=== PATIENT | female | born 1960 | race Caucasian/White ===

== ENCOUNTER → 2020-05-21 16:18 | Outpatient (CLI) | payer OTHER, SELFPAY ==
--- NOTE | ~2020-05-21 | XR_ITS ---
XR shoulder LT min 2V 05/21/2020 16:38 Indication: Left shoulder pain Procedure: 4 views left shoulder Comparison: No prior studies for comparison. Findings: No fracture or traumatic malalignment. No significant soft tissue abnormality. No radiopaqu e foreign bodies. Impression: 1: No significant bone or joint abnormality. Reviewed, dictated and finalized at location A. Impression: 1: No significant bone or joint abnormality.
== END ==
PROVIDERS: PCP Family Medicine; Visit Provider Family Medicine
DX: G89.29 Other chronic pain (principal); M25.512 Pain in left shoulder
CPT/HCPCS: 73030

== ENCOUNTER → 2020-11-21 10:37 | Outpatient (CLI) | payer OTHER, SELFPAY ==
--- NOTE | ~2020-11-21 | US_ITS ---
EXAMINATION: US abdomen limited EXAM DATE: 11/21/2020 11:09 INDICATION: R10.10 - Upper abdominal pain, unspecified. TECHNIQUE: Multiple grayscale and Doppler images of the abdomen right upper quadrant were obtained (b y a technologist who performed the scan) and subsequently reviewed. There is no prior study for cordelia pearl. FINDINGS: The pancreatic head and body are normal in appearance. The pancreatic tail is not visualized. The l iver has normal echogenicity and contour. There are no focal liver lesions identified. There is no evidence of intrahepatic biliary duct dilation. Portal venous flow was seen in the hepatopedal, nor mal direction and has normal Doppler waveform. No right-sided hydronephrosis. Common bile duct measures 3 mm, which is normal. The gallbladder wall is normal in thickness, with ex pected amount of distention. No sonographic evidence of pericholecystic fluid. There is cholelithia sis. Technologist performing exam reports patient did not demonstrate sonographic Rodriguez's sign. P madhu note that this sign is less reliable in patients who have received pain medication. IMPRESSION: 1. Cholelithiasis. Reviewed, dictated and finalized at location A. IMPRESSION: 1. Cholelithiasis.
== END ==
PROVIDERS: Visit Provider Nurse Practitioner Family
DX: R10.10 Upper abdominal pain, unspecified (principal); K80.20 Calculus of gallbladder without cholecystitis without obstruction
CPT/HCPCS: 76705

== ENCOUNTER 2020-11-26 11:30 | Outpatient (CLI) | payer OTHER, SELFPAY ==
--- NOTE | ~2020-11-26 | NM_ITS ---
EXAMINATION: NM hepatobiliary wo pharm DATE: 11/26/2020 14:04 INDICATION: Abdominal pain. Cholelithiasis. COMPARISON: None. TECHNIQUE: 4 mCi Tc-99m mebrofenin (Choletec) was administered intravenously. Scintigraphic images o f the abdomen were obtained for one hour. At the 1 hour time point, the patient drank 8 oz Ensure, an d imaging was continued for 60 minutes. Gallbladder ejection fraction was calculated by the technolog ist. FINDINGS: There is normal clearance of radiotracer from the blood pool. There is homogeneous tracer u ptake by the liver. Activity progresses to the bowel and gallbladder. The gallbladder ejection fract ion (GBEF) is 63%. Note that with this technique, normal GBEF >= 33%. IMPRESSION: 1. Normal hepatobiliary scan Reviewed, dictated and finalized at location A.
== END 2020-11-26 11:31 | disposition home or self-care (01) ==
PROVIDERS: PCP Family Medicine; Visit Provider Family Medicine
DX: K80.20 Calculus of gallbladder without cholecystitis without obstruction (principal)
CPT/HCPCS: 78226; A9537

== ENCOUNTER → 2020-12-06 03:32 | Outpatient (CLI) | payer OTHER, SELFPAY ==
[2020-12-06 19:43] LABS: SARS-CoV-2 RNA PCR Negative
== END ==
PROVIDERS: PCP Family Medicine; Visit Provider Surgery
DX: Z01.812 Encounter for preprocedural laboratory examination (principal); Z20.822 Contact with and (suspected) exposure to COVID-19
CPT/HCPCS: C9803; U0003; U0005

== ENCOUNTER 2020-12-06 09:06 | Outpatient (CLI) | payer OTHER, SELFPAY ==
[2020-12-06 09:35] LABS: Basophils Absolute Auto 0.1 K/mm3 (0.0-0.1); Basophils Percent Auto 0.7 % (0.2-1.2); Eosinophils Absolute Auto 0.1 K/mm3 (0-0.3); Eosinophils Percent Auto 0.8 % (0-4.4); Hematocrit 42.9 % (37.0-47.0); Hemoglobin 13.9 g/dL (12.0-15.0); Immature Granulocyte Absolute 0.03 K/mm3 (0.00-0.031); Immature Granulocyte Percent A 0.4 % (0-0.5); Lymphocytes Absolute Auto 2.24 K/mm3 (0.9-3.2); Mean Corpuscular HGB Conc 32.4 g/dl (32-36); Mean Corpuscular Hemoglobin 29.7 pg (26-34); Mean Corpuscular Volume 91.7 fl (80-100); Monocytes Absolute Auto 0.5 K/mm3 (0.1-0.6); Monocytes Percent Auto 6.2 % (2.6-8.5); Neutrophils Absolute Auto 4.6 K/mm3 (1.3-6.7); Neutrophils Percent Auto 61.9 % (45.5-73.1); Platelet Count Result 237 k/mm3 (150-375); Red Blood Count 4.68 M/mm3 (4.2-5.4); White Blood Count 7.5 K/mm3 (4.5-10.0)
[2020-12-06 09:40] LABS: Alanine Aminotransferase 22 U/L (4-35); Albumin Level 4.6 g/dL (3.5-5.1); Alkaline Phosphatase 75 U/L (38-126); Anion Gap 5 mmol/L (8-16); Aspartate Amino Transferase 27 U/L (14-36); Bilirubin,Total 0.8 mg/dL (0.2-1.3); Blood Urea Nitrogen 14 mg/dL (7-17); Calcium 9.9 mg/dL (8.4-10.2); Carbon Dioxide 34 mmol/L (22-30); Chloride 103 mmol/L (98-107); Estimated Glomerular Filt Rate > 60; Glucose 98 mg/dL (65-105); Potassium 4.2 mmol/L (3.4-5.0); Sodium 142 mmol/L (137-145)
== END 2020-12-06 09:07 | disposition home or self-care (01) ==
LOC: ANHLAB 09:08
PROVIDERS: PCP Family Medicine; Visit Provider Surgery
DX: K80.10 Calculus of gallbladder with chronic cholecystitis without obstruction (principal)
CPT/HCPCS: 36415; 80053; 85025

== ENCOUNTER 2020-12-09 01:34 | Day surgery (SDC) | payer OTHER, SELFPAY ==
[2020-12-04 15:27] VITALS: BMI 27.1
--- NOTE | 2020-12-08 10:12 | WPDANESEPPF ---
Anes - Initial Pre Proc Eval Procedure: Operation Date: 12/09/20 12:00 Proposed Procedures p Laparoscopic Cholecystectomy, Possible Open, Possible Intra Operative Cholangiograms - Juanito Hernandez MD Date/Time: 12/08/20 10:12 Surgeon: Juanito Hernandez MD Pre Op Diagnosis: Chronic cholecystitis with cholelithiasis Patient Data Age: 60 Gender: F Height: 1.63 m Weight: 71.7 kg Allergies Allergy/AdvReac Type Severity Reaction Status Date / Time Penicillins Allergy Unknown Hives Verified 12/04/20 15:06 Home Medications Medication Instructions Recorded Confirmed Type cholecalciferol (vitamin D3) 25 25 mcg PO DAILY 06/10/20 12/04/20 History mcg (1,000 unit) capsule biotin 5 mg capsule 5 mg PO DAILY 10/29/20 12/04/20 History omeprazole 20 mg capsule,delayed 20 mg PO DAILY #30 cap 11/14/20 12/04/20 Rx release diphenhydramine HCl [Unisom 50 mg PO HS PRN 12/04/20 12/04/20 History SleepGels] fluticasone propionate [Flonase 1 spray INTRANASAL DAILY 12/04/20 12/04/20 History Allergy Relief] Patient hx anesthesia problems: none Family hx anesthesia problems: none PMFSH Past Medical History Medical History (Updated 12/04/20 @ 14:34 by Briseyda Griggs) BMI 27.0-27.9,adult Encounter for wellness examination in adult Frozen shoulder left shoulder GERD (gastroesophageal reflux disease) Heartburn History of colon polyps Insomnia Polyp of colon Seasonal allergic rhinitis Vitamin D insufficiency Surgical History Surgical History History of intraocular lens implant (~2018) Family History Family History Mother Hypertension Father Alzheimer disease Grandparent Ovarian cancer Grandparent Acute myocardial infarction Grandparent Alzheimer disease Diabetes mellitus Grandparent Acute myocardial infarction Other Cerebrovascular accident Social History Social History Smoking status: Never smoker Alcohol intake: current Alcohol use details: ONE DRINK PER MONTH Substance use: never Living arrangements: with family 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 Questions were solicited and answers provided to the satisfaction of the patient/family/POA.
[2020-12-09] VITALS (11 sets, daily range): BP systolic 87–139; BP diastolic 52–73; PULSE 56–71; RESP 10–18; TEMP 36.1–36.8; O2SAT 97–100
[2020-12-09] MEDS: ACETAMINOPHEN 500 MG TABLET 1000 MG PO (11:06)
[2020-12-09] MEDS: KETOROLAC 15 MG/ML VIAL (*BKC) IV PUSH (11:06)
[2020-12-09] MEDS: LACTATED RINGERS 1,000 ML 30 ML IV CONT ×2 (11:06→13:55)
[2020-12-09 11:22] LABS: Amylase 51 U/L (30-110); Lipase 52 U/L (23-300)
--- NOTE | 2020-12-09 12:28 | WPDHPUPDATE1 ---
History and Physical Update Update Date/Time: 12/09/20 12:28 History and Physical has been reviewed, including an updated exam of the patient. There are NO changes in the patient's condition. Risks, benefits, and alternatives have been discussed and questions answered. Patient agrees to proceed with procedure.
[2020-12-09] MEDS: CLINDAMYCIN 900 MG/D5W 50 ML 900 MG/50 ML PIGGYBACK 50 MG IVPB (12:37)
[2020-12-09] MEDS: BUPIVACAINE/EPINEPHRINE 0.5% 30 ML VIAL 20 ML INFILTRATE (12:48)
--- NOTE | 2020-12-09 13:53 | P.OP_ITS ---
Procedure Note - Detailed Date of procedure: 12/09/20 Pre-op diagnosis: Chronic cholecystitis with cholelithiasis Chronic Cholecystitis with Cholelithiasis Post-op diagnosis: same Procedure performed: Laparoscopic Cholecystectomy Description of procedure: Patient was seen preoperatively in the holding area and risks, benefits and alternatives confirmed. Patient was taken to the operating room and general anesthesia was induced. A time out was then preformed with the surgery team confirming patient and site of surgery. The abdomen was prepped and draped in the usual sterile fashion. Incision was made just below the umbilicus with an 11 blade knife. I placed 2 stay sutures of O- Vicryl on either side of the mid- line fascia beneath the umbilicus and was then able to slide in the Draper cannula through the fascial defect into the peritoneum. First under low flow and then under high flow the abdomen was insufflated with carbon dioxide never exceeding a pressure of 14. Three 5 mm trocars were then introduced under direct vision. The following trocars were introduced under direct vision: a 5 mm in the epigastrium and two 5 mm trocars along the right costal margin laterally in the subcostal area. There was significant omental adhesions to the underside of the gallbladder. These were taken down with blunt and sharp dissection using some Bovie cautery for hemostasis. We were able to dissect this completely away from the neck of the gallbladder. I then carefully used the L-shaped cautery and the [place] dissector to dissect out the triangle of Calot. I then was able to dissect out both the cystic duct and cystic artery and identify a window of safety. The gall bladder was grasped and the cystic duct and artery were dissected free and clipped with an 5 mm endo-clip italian lecturer. The cystic duct and artery were clipped with use of 2 clips on the patient's side 1 on the gallbladder side utilizing a 5 mm endoclip- italian lecturer. The cystic duct was then transected. The cystic artery was also transected at this point. The gall bladder was removed using electrocautery and then removed from the abdomen using a large 10 mm grasper via the umbilical incision. The skin incision at the level of the umbilicus had to be lengthened slightly in order to get the large stone out of the subcu tissues. The trocars were removed visualizing hemostasis and the remaining gas evacuated. The large trocar site at the umbilicus was closed with use of the 2 stay sutures of 0 Vicryl mentioned above and also a figure of 8 O-Vicryl suture. A 2nd simple suture of 0 Vicryl was use slightly above the previous 1 to close the fascia beneath the umbilicus well. The 2 stay sutures mentioned above on either side of the fascia were also tied together to help approximate this midline fascia. Further local anesthetic was placed into each incision for postop pain control. The skin incisions were closed with subcuticular suture of 4-0 Monocryl. Surgical glue then was applied to all the incisions. Patient tolerated the procedure well was taken to the recovery room in good condition. Implants: none Anesthesia: GETA Surgeon: Juanito Hernandez MD Track Laying Equipment Operator: Ericka ARROYO, OR or first assist registered nurse Estimated blood loss (mL): 5 Drains: No Packing: No Pathology: yes (Gallbladder) Complications: No immediate complications Condition: stable Disposition: PACU Findings: Patient had a slightly enlarged gallbladder with a palpable approximately 3 cm stone within it.
[2020-12-09] MEDS: fentaNYL CITRATE INJ (*CRX) 100 MCG/2 ML VIAL 25 MCG IV PUSH (15:06)
== END 2020-12-09 16:19 | disposition home or self-care (01) ==
PROVIDERS: PCP Family Medicine; Visit Provider Surgery
PROC: 0FT44ZZ Resection of Gallbladder, Percutaneous Endoscopic Approach (ICD-10-PCS; CPT 47562; principal; 2020-12-09 12:30)
DX: K80.10 Calculus of gallbladder with chronic cholecystitis without obstruction (principal); K21.9 Gastro-esophageal reflux disease without esophagitis; E55.9 Vitamin D deficiency, unspecified
CPT/HCPCS: 47562; 36415; 80053; 82150; 83690; 85025; 88304; A9270; C9803; J1100; J1885; J2250; J2405; J2704; J2710; J3010; J7120; Q9966; U0003; U0005

== ENCOUNTER 2021-09-07 01:46 | Day surgery (SDC) | payer OTHER, SELFPAY ==
[2021-07-31 12:20] VITALS: BMI 26.4
--- NOTE | 2021-09-04 14:53 | PM.HPGS ---
History of Present Illness History of Present Illness Consent: Risks, benefits, and alternatives have been discussed and questions answered. Patient agrees to proceed with procedure. Chief complaint: hx of colon polyps Narrative: Yohana Caldwell is a 61 year old female Referred for colon cancer screening. She had 2 polyps removed about 10 years ago, and 1 removed about 5 years ago Review of Systems Review of Systems: All systems reviewed & are unremarkable except as noted in HPI and below PMFSH Past Medical History Medical History BMI 27.0-27.9,adult BMI 28.0-28.9,adult Breast cancer screening by mammogram mammogram 05/06/2021 normal CCC (chronic calculous cholecystitis) Chronic neck pain Encounter for surgical aftercare following surgery on the digestive system Encounter for wellness examination in adult Frozen shoulder left shoulder GERD (gastroesophageal reflux disease) History of colon polyps Insomnia Polyp of colon (08/02/12) Colon polyp 08/02/2012 with repeat colonoscopy 02/20/2016 with polyp with recheck in 3 years, Dr. 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 Gender identity (if verbalized by the patient): Female Spiritual care concerns: No Meds Home Medications and Allergies Home Medications Medication Instructions Recorded Confirmed Type biotin 5 mg capsule 5 mg PO DAILY 10/29/20 09/07/21 History diphenhydramine HCl [Unisom 50 mg PO HS PRN 12/04/20 09/07/21 History SleepGels] cholecalciferol (vitamin D3) 125 5,000 unit PO DAILY #30 cap 06/08/21 09/07/21 Rx mcg (5,000 unit) capsule omeprazole 20 mg capsule,delayed 20 mg PO DAILY #30 cap 06/08/21 09/07/21 Rx release sanchez [id number]-[id number] 1 tablet PO DAILY 07/31/21 09/07/21 History [Apple Cider Vinegar Plus] meloxicam 15 mg PO PRN PRN 07/31/21 09/07/21 History turmeric 400 mg PO DAILY 07/31/21 09/07/21 History fluticasone propionate 50 1 spray INTRANASAL DAILY #16 g 08/13/21 09/07/21 Rx mcg/actuation nasal spray,suspension Allergies Allergy/AdvReac Type Severity Reaction Status Date / Time Penicillins Allergy Unknown Hives Verified 09/07/21 07:39 Exam Resp: Auscultation: clear to auscultation bilaterally Cardio: Rate: regular rate Rhythm: regular rhythm GI: GI Palp: Yes Soft to palpation and No Tenderness to palpation present (GI) Assessment and Plan Assessment and plan (1) Colon cancer screening: Code(s): Z12.11 - Encounter for screening for malignant neoplasm of colon Status: Acute Assessment and Plan: Colonoscopy with possible biopsy or polypectomy or cautery or injection of substances.
[2021-09-07 07:40] VITALS: BP 128/77; PULSE 85; RESP 18; TEMP 36.6; O2SAT 99
--- NOTE | 2021-09-07 07:47 | WPDANESEPPF ---
Anes - Initial Pre Proc Eval Procedure: Operation Date: 09/07/21 08:30 Proposed Procedures p Screening Colonoscopy - Jeffery Pena MD Date/Time: 09/07/21 07:47 Surgeon: Jeffery Pena MD Pre Op Diagnosis: hx of colon polyps Patient Data Age: 61 Gender: F Height: 1.63 m Weight: 71.9 kg Last Vital Signs Temp 36.6 C 09/07/21 07:40 Pulse 85 09/07/21 07:40 Resp 18 09/07/21 07:40 BP 128/77 09/07/21 07:40 Pulse Ox 99 09/07/21 07:40 Allergies Allergy/AdvReac Type Severity Reaction Status Date / Time Penicillins Allergy Unknown Hives Verified 09/07/21 07:39 Home Medications Medication Instructions Recorded Confirmed Type biotin 5 mg capsule 5 mg PO DAILY 10/29/20 07/31/21 History diphenhydramine HCl [Unisom 50 mg PO HS PRN 12/04/20 07/31/21 History SleepGels] cholecalciferol (vitamin D3) 125 5,000 unit PO DAILY #30 cap 06/08/21 07/31/21 Rx mcg (5,000 unit) capsule omeprazole 20 mg capsule,delayed 20 mg PO DAILY #30 cap 06/08/21 07/31/21 Rx release sanchez [id number]-Mk-[id number]-tea 1 tablet PO DAILY 07/31/21 07/31/21 History [Apple Cider Vinegar Plus] meloxicam 15 mg PO PRN PRN 07/31/21 07/31/21 History turmeric 400 mg PO DAILY 07/31/21 07/31/21 History fluticasone propionate 50 1 spray INTRANASAL DAILY #16 g 08/13/21 08/24/21 Rx mcg/actuation nasal spray,suspension Patient hx anesthesia problems: none Family hx anesthesia problems: none Results Review: All pre-operative results and documents have been reviewed as part of the pre-operative evaluation. [facility] Past Medical History Medical History BMI 27.0-27.9,adult BMI 28.0-28.9,adult Breast cancer screening by mammogram mammogram 05/06/2021 normal CCC (chronic calculous cholecystitis) Chronic neck pain Encounter for surgical aftercare following surgery on the digestive system Encounter for wellness examination in adult Frozen shoulder left shoulder GERD (gastroesophageal reflux disease) History of colon polyps Insomnia Polyp of colon (08/02/12) Colon polyp 08/02/2012 with repeat colonoscopy 02/20/2016 with polyp with recheck in 3 years, Dr. 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 Informed Consent: The patient's anesthetic plan and its attendant risks and benefits were discussed with the patient/family/POA. Questions were solicited and answers provided to the satisfaction of the patient/family/POA.
[2021-09-07] MEDS: LACTATED RINGERS 1,000 ML 150 ML IV CONT (07:53)
[2021-09-07] MEDS: SIMETHICONE ORAL SUSPENSION 20 MG/0.3 ML 30 ML BOTTLE 0.6 ML IRRIGATION (08:28)
[2021-09-07 08:34] VITALS: BP 102/59; PULSE 61; RESP 20; O2SAT 100
[2021-09-07 08:44] VITALS: BP 96/57; PULSE 60; RESP 23; O2SAT 96
[2021-09-07 08:54] VITALS: BP 125/73; PULSE 60; RESP 21; O2SAT 100
== END 2021-09-07 09:11 | disposition home or self-care (01) ==
PROVIDERS: PCP Family Medicine; Visit Provider Internal Medicine Gastroenterology
PROC: 0DJD8ZZ Inspection of Lower Intestinal Tract, Via Natural or Artificial Opening Endoscopic (ICD-10-PCS; CPT 45378; principal; 2021-09-07 08:30)
DX: Z12.11 Encounter for screening for malignant neoplasm of colon (principal); Z86.010 Personal history of colon polyps; K64.8 Other hemorrhoids; K57.30 Diverticulosis of large intestine without perforation or abscess without bleeding; K21.9 Gastro-esophageal reflux disease without esophagitis; E55.9 Vitamin D deficiency, unspecified; G47.00 Insomnia, unspecified
CPT/HCPCS: 45378; J2704; J7120

== ENCOUNTER 2023-01-14 09:24 | Emergency (ER) | payer OTHER, SELFPAY ==
[2023-01-14] VITALS (13 sets, daily range): BP systolic 113–146; BP diastolic 66–86; PULSE 60–78; RESP 15–19; TEMP 36.8; O2SAT 97–100
--- NOTE | 2023-01-14 09:49 | ECG_ITS ---
Measurements Intervals [place] Rate: 63 P: 44 MO: 130 QRS: 20 QRSD: 96 T: -16 QT: 387 QTc: 399 Interpretive Statements SINUS RHYTHM NONSPECIFIC ST & T-WAVE ABNORMALITY ABNORMAL ECG NO PREVIOUS ECG AVAILABLE FOR COMPARISON Electronically Signed On 01-14-2023 16:11:20 CDT by Harish Jones M.D.
[2023-01-14] MEDS: MECLIZINE HCL 25 MG TABLET PO (10:01)
[2023-01-14] MEDS: Please add drug allergy info to patient profile. 1 EACH XX (10:01)
--- NOTE | 2023-01-14 11:36 | ED.GENADULT ---
HPI - General Adult General Chief complaint: Dizziness Stated complaint: dizziness Time Seen by Provider: 01/14/23 09:32 History of Present Illness HPI narrative: Patient is a 62-year-old female who presents ER with dizziness. Ongoing for 3 days. Rotational in nature. Most extreme 3 days ago when it lasts all day. Is now intermittent and worse with movement. No nausea or vomiting. No fevers or chills or sweats. No numbness or weakness in arm or leg. No ear pressure or tinnitus. Related Data Allergies Allergy/AdvReac Type Severity Reaction Status Date / Time Penicillins Allergy Hives Verified 01/14/23 10:01 Review of Systems Review of Systems: All systems reviewed & are unremarkable except as noted in HPI and below Constitutional: Constitutional: Denies chills and Denies fever(s) ENT: Reports vertigo, Reports dizziness, Denies nasal congestion and Denies sore throat Cardiovascular: Cardiovascular: Denies chest pain, Denies rapid heart rate and Denies radiating jaw, neck or arm pain Respiratory: Respiratory: Denies cough and Denies dyspnea Neurologic: Denies syncope, Denies headache(s), Denies focal weakness and Denies numbness Exam Narrative: GENERAL: Well-appearing, well-nourished, and in no acute distress. HEAD: Normocephalic, atraumatic. EYES: PERRL and EOMI. ENT: Mucous membranes moist. Cerumen impaction left ear canal. After irrigation bilateral TMs normal in appearance. NECK: Supple. CHEST: Clear to auscultation. No respiratory distress. HEART: Regular rate and rhythm. Normal peripheral pulses. EXTREMITIES: Normal range of motion. No edema. NEURO: Walks with a steady gait. Alert and oriented x3. PSYCH: Normal mood and affect. Course Course Emergency Course: Nursing staff irrigated patient's left ear. Patient also received meclizine. Reports dizziness is improved. Discharge home. Vital Signs Vital signs: Vital Signs Pulse Rate 70 01/14/23 09:45 Respiratory Rate 16 01/14/23 09:45 Blood Pressure 128/67 01/14/23 09:45 Pulse Oximetry 97 01/14/23 09:45 Temperature 98.3 F 01/14/23 10:00 Pulse Rate 66 01/14/23 11:01 Respiratory Rate 18 01/14/23 11:01 Blood Pressure 146/86 H 01/14/23 11:01 Pulse Oximetry 99 01/14/23 11:01 Oxygen Delivery Room Air 01/14/23 10:00 Medical Decision Making Vital Signs Vital Signs: Vital Signs Pulse Rate 70 01/14/23 09:45 Respiratory Rate 16 01/14/23 09:45 Blood Pressure 128/67 01/14/23 09:45 Pulse Oximetry 97 01/14/23 09:45 Temperature 98.3 F 01/14/23 10:00 Pulse Rate 66 01/14/23 11:01 Respiratory Rate 18 01/14/23 11:01 Blood Pressure 146/86 H 01/14/23 11:01 Pulse Oximetry 99 01/14/23 11:01 Oxygen Delivery Room Air 01/14/23 10:00 Discharge Plan Discharge Clinical Impression: Vertigo, Cerumen impaction Patient Disposition: Home, Self-Care Condition: Stable Instructions: Vertigo (ED) Additional Instructions: Return the ER if you have increased dizziness, you cannot keep down food or water, you lose consciousness, you have additional concerns. Prescriptions: New meclizine 12.5 mg tablet 12.5 mg PO TID PRN (Reason: motion sickness) Qty: 14 0RF Follow-up/Referrals: Margarito Britt MD [Primary Care Provider] - 1 Week
== END 2023-01-14 11:57 | disposition home or self-care (01) ==
PROVIDERS: Emergency Provider Emergency Medicine; PCP Family Medicine
DX: R42 Dizziness and giddiness (principal); H61.22 Impacted cerumen, left ear; R94.31 Abnormal electrocardiogram [ECG] [EKG]
CPT/HCPCS: 93005; 99284; A9270

== ENCOUNTER → 2023-06-13 09:53 | Outpatient (CLI) | payer OTHER, SELFPAY ==
--- NOTE | ~2023-06-13 | XR_ITS ---
EXAMINATION: XR chest 2V 06/13/2023 10:16 INDICATION: Dyspnea PROCEDURE: 2 view chest COMPARISON: No prior studies for comparison. FINDINGS: The lungs are clear. The cardiomediastinal silhouette is within normal limits. There are no pleural effusions. There is no pneumothorax suspected. There are cholecystectomy clips. IMPRESSION: 1: NO ACUTE CARDIOPULMONARY DISEASE. Reviewed, dictated and finalized at location B. 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
--- NOTE | ~2023-06-13 | XR_ITS ---
XR cervical spine 4-5V 06/13/2023 10:15 Indication: Cervicalgia Procedure: 5 views cervical spine Comparison: No prior studies for comparison. Findings: There is degenerative retrolisthesis at C5-6. There is moderate disc narrowing at C5-6 with moderate hypertrophy of the endplates. Straightening of cervical lordosis. No prevertebral soft tiss ue swelling. Vertebral body heights are maintained. There is moderate multilevel uncinate and facet h ypertrophy. Lung apices are normal. Odontoid process is normal. Impression: 1: Moderate cervical spondylosis. Reviewed, dictated and finalized at location B. UNICATIONS COORDINATOR Impression: 1: Moderate cervical spondylosis.
== END ==
PROVIDERS: PCP Family Medicine; Visit Provider Family Medicine
DX: R06.09 Other forms of dyspnea (principal); G89.29 Other chronic pain; M47.892 Other spondylosis, cervical region
CPT/HCPCS: 71046; 72050; 93005

== ENCOUNTER 2023-06-13 10:42 | Outpatient (CLI) | payer OTHER, SELFPAY ==
--- NOTE | 2023-06-13 10:57 | ECG_ITS ---
Measurements Intervals [place] Rate: 48 P: 57 RI: 126 QRS: 35 QRSD: 101 T: 13 QT: 439 QTc: 395 Interpretive Statements SINUS BRADYCARDIA BORDERLINE ST-T WAVE ABNORMALITY- ANT/INF LEADS BASELINE WANDER- I, II, AVR, AVL, AVF ABNORMAL ECG NO PREVIOUS ECG AVAILABLE FOR COMPARISON Electronically Signed On 06-13-2023 11:32:44 AUTOMOBILE AND PROPERTY UNDERWRITER by Benjamin Valdivia D.O.
== END 2023-06-13 10:43 | disposition home or self-care (01) ==
PROVIDERS: PCP Family Medicine; Visit Provider Family Medicine
DX: R06.09 Other forms of dyspnea (principal); R94.31 Abnormal electrocardiogram [ECG] [EKG]
CPT/HCPCS: 93005

== ENCOUNTER 2023-07-14 08:32 | Outpatient (CLI) | payer OTHER, SELFPAY ==
--- NOTE | 2023-07-14 08:56 | ECHO_ITS ---
Patient Info Name: Yohana Caldwell Age: 63 years : 1960 Gender: Female Ht: 64 in Wt: 168 lbs BSA: 1.88 m2 HR: 52 bpm BP: 117 / 82 mmHg Heart Rhythm: Bradycardia Technical Quality: Fair Exam Date: 07/14/2023 9:13 AM Exam Location: Echo Lab Patient Status: Outpatient Admit Date: 07/14/2023 Staff Ordering Physician: Margarito Britt MD Attending Provider: Magrarito Britt MD Referring Physician: Balwinder DAN; Exam Type: CA echo doppler color flow Study Info Indications R06.09 - Other forms of dyspnea Complete two-dimensional, color flow and Doppler transthoracic echocardiogram is performed. Summary 1. Complete two-dimensional, color flow and Doppler transthoracic echocardiogram is performed. 2. Left ventricular chamber dimension is normal. 3. Left ventricular systolic function is normal, estimated at 60-65%. 4. The left ventricular diastolic function is grade I diastolic dysfunction. 5. E/e' 8 is minimally elevated. 6. There is mild mitral valve regurgitation. 7. There is mild pulmonic regurgitation. Left Ventricle E/e' 8 is minimally elevated. Left ventricular chamber dimension is normal. Left ventricular systolic function is normal, estimated at 60-65%. The left ventricular diastolic function is grade I diastolic dysfunction. Right Ventricle Right ventricular chamber dimension is normal. Right ventricular systolic function is normal. Left Atria Left atrial chamber dimension is normal. Right Atria Right atrial chamber dimension is normal. Aortic Valve The aortic valve is trileaflet. There is no aortic valve stenosis. There is no aortic valve regurgitation. Pulmonic Valve There is mild pulmonic regurgitation. Mitral Valve There is no mitral valve stenosis. There is mild mitral valve regurgitation. Tricuspid Valve There is no tricuspid valve regurgitation. Pericardium/Pleural There is no pericardial effusion. Inferior Vena Cava Normal inferior vena cava with >50% collapse upon inspiration consistent with normal right atrial pressure, 5 mmHg. Aorta The aortic root size at the sinus of Valsalva is normal. Left Ventricular Outflow Tract Name Value Normal LVOT 2D LVOT Diameter 2.0 cm LVOT Doppler LVOT Peak Gradient 5 mmHg LVOT Mean Gradient 2 mmHg LVOT VTI 26 cm LVOT VTI/AV VTI Ratio 0.6 LVOT Stroke Volume 80 ml LVOT CO 3.9 l/min LVOT CI 2.1 l/min/m2 Pulmonic Valve Name Value Normal PV Doppler PV Peak Gradient 2 mmHg PV Regurgitation Doppler [place] Peak End Diastolic Velocity 88 cm/s Mitral Valve
--- NOTE | 2023-07-14 09:44 | EST_ITS ---
Patient Info Name: Yohana Caldwlel Age: 63 years : 1960 Gender: Female Ht: 64 in Wt: 165 lbs BSA: 1.86 m2 HR: 59 bpm BP: 118 / 67 mmHg Heart Rhythm: Sinus Rhythm Exam Date: 07/14/2023 9:55 AM Exam Location: Echo Lab Patient Status: Outpatient Admit Date: 07/14/2023 Staff Ordering Physician: Margarito Britt MD Attending Provider: Margarito Britt MD Exercise Technologist: Jasmyn Padilla CT Exercise Physician: Benjamin Valdivia DO Exam Type: CA stress test treadmill Study Info Indications R06.09 - Other forms of dyspnea A treadmill exercise stress test was performed. Summary 1. 1. Negative Jack exercise stress test for ischemic ST changes by ECG criteria. 2. 2. Good functional capacity, achieving 10 METs of workload. 3. 3. Hypertensive response to exercise. 4. 4. Appropriate HR response to exercise. 5. 5. Appropriate HR recovery at 1 minute post exercise. 6. 6. No imaging with stress testing. 7. 7. Patient informed of the above results. Protocol: Jack Stress ECG Details Stage: REST Duration (min): 1 min : 18 sec Speed (mph): 0.0 Grade (%): 0 HR (bpm): 55 SBP (mmHg): 118 DBP (mmHg): 67 METS: --- Stage: REST Duration (min): 1 min : 48 sec Speed (mph): 0.0 Grade (%): 0 HR (bpm): 52 SBP (mmHg): 118 DBP (mmHg): 67 METS: --- Stage: REST Duration (min): 3 min : 55 sec Speed (mph): 0.0 Grade (%): 0 HR (bpm): 60 SBP (mmHg): 118 DBP (mmHg): 67 METS: --- Stage: REST Duration (min): 5 min : 55 sec Speed (mph): 0.0 Grade (%): 0 HR (bpm): 55 SBP (mmHg): 118 DBP (mmHg): 67 METS: --- Stage: REST Duration (min): 6 min : 6 sec Speed (mph): 0.0 Grade (%): 0 HR (bpm): 56 SBP (mmHg): 118 DBP (mmHg): 67 METS: --- Stage: STAGE 1 Duration (min): 1 min : 0 sec Speed (mph): 1.7 Grade (%): 10 HR (bpm): 79 SBP (mmHg): 118 DBP (mmHg): 67 METS: --- Stage: STAGE 1 Duration (min): 2 min : 0 sec Speed (mph): 1.7 Grade (%): 10 HR (bpm): 91 SBP (mmHg): 118 DBP (mmHg): 67 METS: --- Stage: STAGE 1 Duration (min): 3 min : 0 sec Speed (mph): 1.7 Grade (%): 10 HR (bpm): 97 SBP (mmHg): 152 DBP (mmHg): 75 METS: --- Stage: STAGE 2 Duration (min): 1 min : 0 sec Speed (mph): 2.5 Grade (%): 12 HR (bpm): 108 SBP (mmHg): 152 DBP (mmHg): 75 METS: --- Stage: STAGE 2 Duration (min): 2 min : 0 sec Speed (mph): 2.5 Grade (%): 12 HR (bpm): 119 SBP (mmHg): 205 DBP (mmHg): 83 METS: --- Stage: STAGE 2 Duration (min): 3 min : 0 sec Speed (mph): 2.5 Grade (%): 12 HR (bpm): 124 SBP (mmHg): 167 DBP (mmHg): 88 METS: --- Stage: STAGE 3 Duration (min): 1 min : 0 sec Speed (mph): 3.4 Grade (%): 14 HR (bpm): 135 SBP (mmHg): 167 DBP (mmHg): 88 METS: --- Stage: STAGE 3 Duration (min): 2 min : 0 sec Speed (mph): 3.4 Grade (%): 14 HR (bpm): 139 S
== END 2023-07-14 08:33 | disposition home or self-care (01) ==
PROVIDERS: PCP Family Medicine; Visit Provider Family Medicine
DX: R06.09 Other forms of dyspnea (principal); I08.3 Combined rheumatic disorders of mitral, aortic and tricuspid valves
CPT/HCPCS: 93017; 93306

== ENCOUNTER 2023-12-13 08:45 | Outpatient (CLI) | payer OTHER, SELFPAY ==
--- NOTE | ~2023-12-13 | DEXA_ITS ---
Bone Density Report Name: ALEXANDER MADERA Age: 63 Sex: Female Ethnicity: White Date of : 1960 Indication: postmenopausal; screening for osteoporosis; prior fracture; Referring Provider: ZOEY COKER Study: Bone densitometry was performed. Exam Date: December 13, 2023 Accession number: [id number] Bone Density: Region BMD T-score Z-score Classification AP Spine (L1, L2, L3) 1.125 1.0 2.5 Normal Femoral Neck (Left) 0.696 -1.4 0.0 Osteopenia Total Hip (Left) 0.876 -0.5 0.6 Normal Femoral Neck (Right) 0.796 -0.5 0.9 Normal Total Hip (Right) 0.933 -0.1 1.0 Normal Total Hip Mean 0.905 -0.3 0.8 Normal World Health Organization criteria for BMD impression classify patients as: Normal (T-score at or above -1.0), Osteopenia (T-score between -1.0 and -2.5), or Osteoporosis (T-score at or below -2.5). 10-year Fracture Risk(1): Major Osteoporotic Fracture 14% Hip Fracture 1.2% Reported Risk Factors: [place] (), Neck BMD=0.696, BMI=28.6, previous fracture (1) FRAX(R) Version 3.08. Fracture probability calculated for an untreated patient. Fracture probability may be lower if the patient has received treatment. Previous Exams: Region Exam Age BMD T-score BMD Change BMD Change Date g/cm2 vs Baseline vs Previous AP Spine(L1, L2, L3) 12/13/2023 63 1.125 1.0 -0.050* -0.050* 02/25/2016 55 1.175 1.4 Total Hip(Left) 12/13/2023 63 0.876 -0.5 0.047* 0.047* 02/25/2016 55 0.829 -0.9 Total Hip(Right) 12/13/2023 63 0.933 -0.1 0.018 0.018 02/25/2016 55 0.915 -0.2 *Denotes significance at 95% confidence level, LSC for AP Spine = 0.022 g/cm2, LSC for Total Hip = 0.027 g/cm2 Clinical Information Provided by Patient: Has had a low trauma fracture Has used the following medications: Vitamin D Patient maximum height was 64.0 Menopause Age: 51 No regular weight bearing exercise Does not regularly consume dairy products Drinks caffeinated beverages Onset of menses at age 14 Number of children 2 Impression: The patient has low bone mass, based on the Left Femoral Neck T-score. The patient has an estimated ten-year risk of hip fracture of 1.2% and an estimated ten-year risk of major fracture of 14%, based on the WHO FRAX algorithm. The patient has risk factors, including: previous fracture. The BMD for the AP Spine(L1, L2, L3) decreased, changing by -0.050 since the la
== END 2023-12-13 08:46 ==
PROVIDERS: PCP Family Medicine; Visit Provider Obstetrics & Gynecology Gynecology
DX: Z78.0 Asymptomatic menopausal state (principal); M85.852 Other specified disorders of bone density and structure, left thigh
CPT/HCPCS: 77080

== ENCOUNTER 2024-02-02 07:30 | Outpatient (CLI) | payer OTHER, SELFPAY ==
--- NOTE | ~2024-02-02 | CT_ITS ---
Non-contrast Head CT History: Tremor Technique: Axial non-contrast imaging of the brain was performed. Dose reduction technique was used on this scan by utilizing automated exposure control and iterative reconstruction technique. The dose -length product (DLP) was 605.33 mGy-cm. Findings: There is no evidence of intracranial hemorrhage, mass lesion, or acute infarct. Brain par enchyma appears normal. The ventricles and subarachnoid spaces are normal in size. The calvarium ap pears normal. The visualized paranasal sinuses and mastoid air cells are clear. Impression: No significant abnormality seen. Reviewed, dictated and finalized at location . Impression: No significant abnormality seen.
== END 2024-02-02 07:31 | disposition home or self-care (01) ==
PROVIDERS: PCP Family Medicine; Visit Provider Family Medicine
DX: G25.0 Essential tremor (principal)
CPT/HCPCS: 70450

== ENCOUNTER 2024-08-14 09:42 | Outpatient (CLI) | payer OTHER, SELFPAY | END 2024-08-14 09:43 | disposition home or self-care (01) | LOC: ANHAUDIO 09:43 | PROVIDERS: PCP Family Medicine | DX: H90.42 Sensorineural hearing loss, unilateral, left ear, with unrestricted hearing on the contralateral side (principal); H90.71 Mixed conductive and sensorineural hearing loss, unilateral, right ear, with unrestricted hearing on the contralateral side | CPT/HCPCS: 92557; 92567 ==

== ENCOUNTER 2024-12-18 15:50 | Outpatient (CLI) | payer OTHER, SELFPAY ==
--- OUTSIDE RECORDS SUMMARY | 2024-12-18 15:53 | XMS_ITS | Clinical Summary ---
Author Organization [facility] Address [address] 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 This disclosure is being madepursuant to the Care Everywhere program and may not contain all information available regarding this patient. Last updated 18.[facility] Allergies Active Allergy Reactions Criticality Noted Date Comments Penicillins Rash Medium 07/05/2018 Medications * Be aware that medications may not be up to date on this document. Alwaysverify current medications with the patient. 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 Gender Identity Not on file Sexual Orientation Not on file Last Filed Vital Signs Vital Sign Reading Time Taken Comments Blood Pressure 122/74 07/05/2018 4:34 PM PROFESSIONAL ENGINEER Pulse 65 05/02/2019 3:25 PM CDT Temperature 37.6 C (99.6 F) 05/02/2019 3:25 PM CDT Respiratory Rate 16 05/02/2019 3:25 PM CDT Oxygen Saturation 98% 07/05/2018 4:34 PM PROFESSIONAL ENGINEER Inhaled Oxygen Concentration - - Weight 72.6 kg (160 lb) 05/02/2019 3:25 PM CDT Height 162.6 cm (5' 4 ) 05/02/2019 3:25 PM CDT Body Mass Index 27.46 05/02/2019 3:25 PM CDT Plan of Treatment Health Maintenance Due Date Last Done Comments COLOGUARD (AGES 45-75) - COL ON CA SCREENING 1960 COLON MONITORING 1960 COLONOSCOPY - COLON CA SCREENING 1960 CT COLONOGRAPHY - COLON CA SCREENING 1960 Colorectal Cancer Screening 1960 FIT - COLON CA SCREENING 1960 FLEX SIG - COLON CA SCREENING 1960 LIPID TESTING 1960 MAMMOGRAM 1960 HIV SCREENING 1976 HEPATITIS C SCREENING 02/28/1979 DTAP/TDAP/TD VACCINES (1 - Tdap) 1980 PNEUMOCOCCAL VACCINE 50+ (1 of 1 - PCV) 2011 ZOSTER VACCINE (1 of 2) 2011 SCREENING FOR DIABETES 07/05/2018 COVID-19 VACCINE ( - 2023-2 5 season) 2024 DEPRESSION SCREENING 07/25/2024 INFLUENZA VACCINE (Season Ended) 2025 Respiratory Syncytial Virus (RSV) Vaccine Pt: or over 60 yrs (1 - 1-dose 75+ series) 2036 HEPATITIS B VACCINE Aged Out No longe r eligible based on patient's age to complete this topic HIB VACCINE Aged Out No longer eligi ble based on patient's age to complete this topic HPV VACCINE Aged Out No longer eligi ble based on patient's age to complete this topic MENINGOCOCCAL (Group B) VACC INE SHARED DECISION-MAKING Aged Out No longer eligibl e based on patient's age to complete this topic MENINGOCOCCAL GROUPS A/C/Y/W VACCINE Aged Out No longer eligible b ased on patient's age to complete this topic Insurance [facility] [place] [address] [place] [address] HEALTH CARE Care Teams Laundry Superintendent Relationship Specialty Start Date End Date Margarito Britt MD PCP - General Family Medicine 07/05/18
[2024-12-18 16:40] LABS: Free T3 3.48 pg/mL (2.45-5.93); Free T4 Free Thyroxine 1.17 ng/dL (0.78-2.19)
[2024-12-18 16:54] LABS: Thyroid Stimulating Hormone 0.794 uIU/mL (0.465-4.680)
== END 2024-12-18 15:51 | disposition home or self-care (01) ==
LOC: ANHLAB 15:51
PROVIDERS: PCP Family Medicine; Visit Provider Psychiatry & Neurology Neurology
DX: G25.0 Essential tremor (principal)
CPT/HCPCS: 36415; 84439; 84443; 84481